=== PATIENT | female | born 1955 | race Caucasian/White ===

== ENCOUNTER 2022-03-02 13:11 | Outpatient (REF) | payer MEDICARE, MEDICAID, SELFPAY ==
--- NOTE | ~2022-03-02 | MM_ITS ---
EXAMINATION: BONE DENSITOMETRY CLINICAL INDICATION: Menopause. COMPARISON: None (current study represents initial baseline exam). TECHNIQUE: Using a Sitestar DXA System (software version: 13.1) manufactured by [email or web address], dual-energy x-ray absorptiometry was performed of the lumbar spine and left hip. The images are of good technical quality. Summary results are attached. FINDINGS: AP SPINE L1-L4: BMD 1.204 g/cm2, Z-score 0.3, T-score 0.2, normal. LEFT FEMUR, NECK: BMD 0.891 g/cm2, Z-score -1.0, T-score -1.1, osteopenia. LEFT FEMUR, TOTAL: BMD 0.897 g/cm2, Z-score -1.1, T-score -0.9, normal. IDENTIFIED RISK FACTORS: Early menopause, secondary osteoporosis, tobacco use (current smoker). HISTORY OF FRACTURE: None listed. MEDICATIONS: Vitamin D. MM/XR DEXA axial skeleton IMPRESSION: 1. DIAGNOSIS: Osteopenia based on the lowest T-score value of -1.1 in the femoral neck applying World Health Organization criteria. 2. 10-YEAR FRACTURE RISK PREDICTION, FRAX: Major osteoporotic fracture (clinical spine, forearm, hip or shoulder) 3.5%. Hip fracture 0.5%. 3. Treatment Recommendations: NOF guidelines recommend consideration for treatment in postmenopausal women and men age 50 and older presenting with the following: -A hip or vertebral (clinical or morphometric) fracture. -T-score less than or equal to -2.5 at the femoral neck or spine after appropriate evaluation to exclude secondary causes. -Low bone mass at the hip or spine and a 10-year fracture probability by FRAX of greater than or equal to 3% for hip fracture or greater than or equal to 20% for major osteoporotic fracture based on the [place] adapted WHO algorithm. 4. Other Recommendations: All treatment decisions require clinical judgment and consideration of individual patient factors, including patient preferences, comorbidities, previous drug use, risk factors not captured in the FRAX model (e.g. frailty, falls, vitamin D deficiency, increased bone turnover, interval significant decline in bone density) and possible under or overestimation of fracture risk by FRAX. Additional medical evaluation for secondary cause of low bone mineral density may be appropriate. FUTURE SCAN RECOMMENDATION: People with diagnosed cases of osteoporosis or at high risk for fracture should have regular bone mineral density tests. For patients eligible for Medicare, routine testing is allowed once every 2 years. The testing frequency can be increased to one year for patients who have rapidly progressing disease, those who are receiving or discontinuing medical therapy to restore bone mass, or have additional risk factors.
--- NOTE | ~2022-03-02 | MM_ITS ---
EXAMINATION: MM SCREENING DIGITAL BREAST TOMOSYNTHESIS, BILATERAL CLINICAL INFORMATION: Screening. Asymptomatic. The lifetime risk of breast cancer based on the Tyrer-Cuzick Model is 2.6%. COMPARISON: Mammography: April 06, 2018 and studies dating back to June 06, 2015 TECHNIQUE: Digital breast tomosynthesis is performed in both the craniocaudal and mediolateral oblique views along with computer-aided detection (CAD). Synthesized 2D images are generated from the tomosynthesis. FINDINGS: The breasts are extremely dense, which lowers the sensitivity of mammography (ACR BI-RADS breast composition Category d). There are no significant masses, abnormal calcifications, or other abnormalities. MM/MM tomosynthesis screening BI IMPRESSION: No significant changes from prior exam. ASSESSMENT: BI-RADS 1: Negative RECOMMENDATION: Routine annual mammography screening. This patient's information was entered into a reminder system with a target due date for their next mammogram.
== END 2022-03-02 13:12 | disposition home or self-care (01) ==
LOC: HO.MAMMO 13:11
PROVIDERS: PCP Nurse Practitioner Family; Visit Provider Nurse Practitioner Family
DX: Z12.31 Encounter for screening mammogram for malignant neoplasm of breast (principal); Z13.820 Encounter for screening for osteoporosis; Z78.0 Asymptomatic menopausal state
CPT/HCPCS: 77063; 77067; 77080

== ENCOUNTER 2022-09-21 13:57 | Outpatient (REF) | payer OTHER, SELFPAY ==
[2022-09-22 09:07] LABS: CT PCR NOT DETECTED (Not Detect.); NG PCR NOT DETECTED (Not Detect.)
[2022-09-28 10:33] LABS: HPV mRNA E6/E7 rflx Not Detected (Not Detected)
== END 2022-09-21 13:58 | disposition home or self-care (01) ==
LOC: HO.LNP 13:57
PROVIDERS: PCP Nurse Practitioner Family; Visit Provider Advanced Practice Midwife
DX: Z01.419 Encounter for gynecological examination (general) (routine) without abnormal findings (principal); Z11.51 Encounter for screening for human papillomavirus (HPV); Z20.2 Contact with and (suspected) exposure to infections with a predominantly sexual mode of transmission
CPT/HCPCS: 0353U; 87624; 88142; G0101

== ENCOUNTER 2022-11-26 13:19 | Outpatient (REF) | payer OTHER, MEDICAID, SELFPAY ==
[2022-11-27 11:49] LABS: BV Int Neg Control Negative (Negative); BV Int Pos Control Positive (Positive)
== END 2022-11-26 13:20 | disposition home or self-care (01) ==
LOC: HO.LNP 13:19
PROVIDERS: PCP Nurse Practitioner Family; Visit Provider Advanced Practice Midwife
DX: L29.9 Pruritus, unspecified (principal); L98.9 Disorder of the skin and subcutaneous tissue, unspecified; B36.9 Superficial mycosis, unspecified; Z86.19 Personal history of other infectious and parasitic diseases; Z71.2 Person consulting for explanation of examination or test findings
CPT/HCPCS: 87070; 87205; 87480; 87510; 87660; 99212

== ENCOUNTER 2022-11-26 13:19 | Outpatient (AMB) | payer OTHER, MEDICAID, SELFPAY ==
--- NOTE | 2022-11-26 13:29 | A.OFFVIS_ITS ---
Intake Vital Signs 11/26/22 13:30 Height 5 ft 6 in Weight 184 lb BMI 29.7 Intake Visit Reasons: 1 month judie per Laila Intake Note: Sores in the bottom of her breast The patient agreed to use of a medical illustrator during this encounter. Scribed for KURTIS Ulrich by Tami Olivares, medical illustrator, on 11/26/2022 at 1:58 pm EST. Coupon Collection Clerk Required: No Information Interpreted: non-clinical & clinical Fiber Optic Assembler: Fiber Optic Assembler Present (Chata) Allergies No Known Allergies Allergy (Verified 11/26/22 13:32) Is last menstrual period known: No Post menopausal: Yes HPI HPI Comments History of Present Illness Details She is here for JUDIE for Trichomonas vaginalis which was found on last pap smear on 09/23/22. Complains of sores under her breasts that itches. Using the Rx and reports the sores were much bigger and now long better. She is not wearing a bra, using white cotton mami shirts instead. She is not sexually active. [facility], LAT[facility] Medical History (Updated 11/26/22 @ 16:31 by Tami Olivares) Fungal rash of torso H/O trichomoniasis Hyperlipidemia Pruritus Social History Housing: Apartment Alcohol intake: never Patient Tobacco Use Status: Current everyday Tobacco user Cigarettes Per Day: 3 e-Cigarette/Vaping Use: Never Used Second Hand Smoke Exposure: No service: No Current occupational status: unemployed and retired Cognitive needs: No Hearing needs: No Vision needs: No Female Reproductive History Menstrual Age of Menarche: 16 Date of last pap smear: 09/23/22 (negative) Physical Exam Vital Signs: BMI result Body Mass Index 29.7 Chest Other: bilateral excoriation under the pendulous breast, granulation tissue forming and area's of healing scattered, fungal rash noted on chest wall opposing the breast tissue, foul odor noted. Results Reviewed Results Reviewed: Collected: 09/21/22 Location: [facility] Received: 09/23/22 Interpretation Satisfactory for evaluation. No endocervical cells seen. Microorganisms consistent with Trichomonas vaginalis. Negative for intraepithelial lesion or malignancy. ?HPV mRNA E6/E7:? NOT DETECTED Assessment & Plan Assessment & Plan (1) Encounter to discuss test results: Code(s): Z71.2 - Person consulting for explanation of examination or test findings Plan: Discussed: Consider referral to Spa Technician if not improving skin fungus at next visit. Skin culture for yeast done today. Rx sent to pharmacy for refills due to larger surface area. Schedule appt for 1-2 weeks for skin check. Reviewed skin care and medication use. BV testing panel today for trichomoniasis JUDIE. Await results and treat accordingly. All of her questions and concerns were addressed to the best of my ability and shared decision making. She is agreeable to plan of care. (2) Pruritus: Comment: under breast, odorous Code(s): L29.9 - Pruritus, unspecified (3) Fungal rash of torso: Code(s): B36.9 - Superficial mycosis, unspecified (4) H/O trichomoniasis: Code(s): Z86.19 - Personal history of other infectious and parasitic diseases Orders: Orders Routine Culture w Gram Stain Today L29.9 - Pruritus, unspecified Bacterial Vaginosis Panel Today L29.9 - Pruritus, unspecified Medications: Refilled clotrimazole-betamethasone 1-0.05 % 1 appl topical BID 7 days 45 grams 2RF itching Coding Level of Care Code Est Pt Level 3 (57552) Diagnoses Encounter to discuss test results Z71.2 Pruritus L29.9 Fungal rash of torso B36.9 H/O trichomoniasis Z86.19
[2022-11-26 13:30] VITALS: BMI 29.7
== END 2022-11-26 15:01 | disposition home or self-care (01) ==
LOC: HO.HWS 13:19
PROVIDERS: PCP Nurse Practitioner Family; Visit Provider Advanced Practice Midwife
DX: Z71.2 Person consulting for explanation of examination or test findings (principal); L29.9 Pruritus, unspecified; B36.9 Superficial mycosis, unspecified; Z86.19 Personal history of other infectious and parasitic diseases
CPT/HCPCS: 99213

== ENCOUNTER 2022-12-10 09:15 | Outpatient (AMB) | payer OTHER, MEDICAID, SELFPAY ==
--- NOTE | 2022-12-10 09:32 | A.OFFVIS_ITS ---
Intake Vital Signs 12/10/22 09:35 Height 5 ft 6 in Weight 182 lb 15.739 oz BMI 29.5 BP 126/82 Intake Visit Reasons: 1-2 week skin check Intake Note: The patient agreed to use of a medical record retrieval specialist during this encounter. Scribed for KURTIS Ulrich by Em Olson medical record retrieval specialist, on 12/10/2022 at 9:45 am EST Assistant Store Director Required: No Information Interpreted: non-clinical & clinical Visual Basic .Net Developer: Visual Basic .Net Developer Present (Chata HANNA) Accompanied by: Self / Same As Patient Allergies No Known Allergies Allergy (Verified 12/10/22 09:35) HPI HPI Comments History of Present Illness Details She presents for skin check secondary to fungal rash/sores under her breasts. Reports the rash and sores are improved. She has been using the clotrimazole cream as directed. [facility] Medical History Fungal rash of torso H/O trichomoniasis Hyperlipidemia Pruritus Social History Housing: Apartment Alcohol intake: never Patient Tobacco Use Status: Current everyday Tobacco user Cigarettes Per Day: 3 e-Cigarette/Vaping Use: Never Used Second Hand Smoke Exposure: No service: No Current occupational status: unemployed and retired Cognitive needs: No Hearing needs: No Vision needs: No Female Reproductive History Menstrual Age of Menarche: 16 Review of Systems Const All systems reviewed & are unremarkable except as noted in HPI and below Physical Exam Vital Signs: Last Vital Signs BP 126/82 12/10/22 09:35 BMI result Body Mass Index 29.5 Const General: cooperative, no acute distress and well developed Chest Other: fungal rash improved. Sores are healing well and appropriately. Granulated tissue looks healthy. Sores have reduced greatly in size. Breast/axilla inspection: normal inspection of the breasts (symmetrical) and Other (see above comment) Assessment & Plan Assessment & Plan (1) Fungal rash of torso: Code(s): B36.9 - Superficial mycosis, unspecified Plan: Improved since last visit. Continue clotrimazole cream for one more week. Clean the area well and air dry. Contact office if sx return. RTO prn. Coding Level of Care Code Est Pt Level 3 (77971) Diagnoses Fungal rash of torso B36.9
[2022-12-10 09:35] VITALS: BP 126/82; BMI 29.5
== END 2022-12-10 10:01 | disposition home or self-care (01) ==
LOC: HO.HWS 09:15
PROVIDERS: PCP Nurse Practitioner Family; Visit Provider Advanced Practice Midwife
DX: B36.9 Superficial mycosis, unspecified (principal)
CPT/HCPCS: 99213

== ENCOUNTER → 2022-12-10 09:15 | Outpatient (BNVA) | payer OTHER, MEDICAID, SELFPAY | PROVIDERS: PCP Nurse Practitioner Family; Visit Provider Advanced Practice Midwife | DX: B36.9 Superficial mycosis, unspecified (principal) | CPT/HCPCS: 99212 ==

== ENCOUNTER 2023-03-04 13:03 | Outpatient (REF) | payer OTHER, SELFPAY ==
--- NOTE | ~2023-03-04 | MM_ITS ---
EXAMINATION: MM SCREENING DIGITAL BREAST TOMOSYNTHESIS, BILATERAL CLINICAL INFORMATION: Screening. Asymptomatic. COMPARISON: Mammography: This study is compared with prior exams dating back to 2016. TECHNIQUE: Digital breast tomosynthesis is performed in both the craniocaudal and mediolateral oblique views along with computer-aided detection (CAD). Synthesized 2D images are generated from the tomosynthesis. FINDINGS: The breasts are heterogeneously dense, which may obscure small masses (ACR BI-RADS breast composition Category c). There are no significant masses, abnormal calcifications, or other abnormalities. MM/MM tomosynthesis screening BI IMPRESSION: No mammographic evidence of malignancy. ASSESSMENT: BI-RADS BI-RADS 1 - Negative RECOMMENDATION: Routine annual mammography screening. 1 year F/U This examination should not preclude the clinical evaluation of a suspicious palpable abnormality. This patient's information was entered into a reminder system with a target due date for their next mammogram.
== END 2023-03-04 13:04 | disposition home or self-care (01) ==
LOC: HO.MAMMO 13:03
PROVIDERS: Visit Provider Nurse Practitioner Family
DX: Z12.31 Encounter for screening mammogram for malignant neoplasm of breast (principal)
CPT/HCPCS: 77063; 77067

== ENCOUNTER → 2023-03-04 13:15 | Outpatient (BNV) | payer OTHER, SELFPAY | PROVIDERS: Visit Provider Radiology Diagnostic Radiology | DX: Z12.31 Encounter for screening mammogram for malignant neoplasm of breast (principal) | CPT/HCPCS: 77063; 77067 ==